=== PATIENT | female | born 1950 | race Caucasian/White ===

== ENCOUNTER 2018-12-17 16:45 | Emergency (ER) | payer MEDICARE, OTHER ==
[2018-12-17] MEDS ORDERED: Sodium Chloride 0.9% 10 ML Syringe FLUSH PRN (18:11)
[2018-12-17] MEDS ORDERED: Pantoprazole 40 MG Vial IVPUSH SCH (18:30)
--- NOTE | 2018-12-17 18:56 | EDM.PDOC ---
ED HPI GENERAL MEDICAL PROBLEM - General Chief Complaint: Gastrointestinal Problem Stated Complaint: BLOODY BOWELS Time Seen by Provider: 12/17/18 17:30 Source of Information: Reports: Patient, Family History Limitations: Reports: No Limitations - History of Present Illness INITIAL COMMENTS - FREE TEXT/NARRATIVE: Alert 68-year-old female presents with dark stools over the course of last 4 days. The patient has been doctoring at the meal for cardiac concerns. Patient is from [facility] and visiting [facility] on vacation. Patient's concerned she has had multiple dark stools over the course of the last 4 days. She did have some slight blood in her stool earlier today. Patient also has an increased heart rate. Patient has been doctoring quite a bit as of late she has had a colonoscopy which was negative she has known esophageal varices and was due for an endoscopy/EGD but procedure could not be completed due to tachycardia in the [facility]. Patient is otherwise in her normal state of health. She has some abdominal bloating along with swelling in her legs and hands which is new at this point in time. Patient is currently on her medications for esophageal varices, propranolol for her hypertension varices and Protonix. - Related Data Allergies Allergy/AdvReac Type Severity Reaction Status Date / Time erythromycin base Allergy Hives Verified 12/17/18 17:41 [Erythromycin Base] Penicillins Allergy Hives Verified 12/17/18 17:41 Home Meds: Home Meds Furosemide [Lasix] 04/01/14 [History] Potassium Chloride 04/01/14 [History] Propranolol [Inderal] 04/01/14 [History] Sertraline HCl [Zoloft] 04/01/14 [History] Zinc 04/01/14 [History] Apixaban [Eliquis] 12/17/18 [History] Neomycin [Neomycin Sulfate] 12/17/18 [History] Pantoprazole [ProTONIX] 12/17/18 [History] Past Medical History Cardiovascular History: Reports: Afib, Arrhythmia, Cardiomyopathy Gastrointestinal History: Reports: Chronic Diarrhea, GI Bleed Other Gastrointestinal History: esophageal varices - Past Surgical History Other GI Surgeries/Procedures: genetic hepatic fibrosis Social & Family History - Tobacco Use Smoking Status *Q: Never Smoker ED ROS GENERAL - Review of Systems Review Of Systems: ROS reveals no pertinent complaints other than HPI. Constitutional: Reports: Malaise GI/Abdominal: Reports: Abdominal Pain, Black Stool, Decreased Appetite, Melena : Reports: No Symptoms Musculoskeletal: Reports: No Symptoms Skin: Reports: No Symptoms Neurological: Reports: No Symptoms Psychiatric: Reports: No Symptoms Hematologic/Lymphatic: Reports: Easy Bleeding Immunologic: Reports: No Symptoms ED EXAM, GI/ABD - Physical Exam Exam: See Below Exam Limited By: No Limitations General Appearance: Alert, WD/WN Eyes: Bilateral: Normal Appearance, EOMI Ears: Normal External Exam, Hearing Grossly Normal Nose: Normal Inspection, Normal Mucosa, No Blood Throat/Mouth: Normal Inspection, Normal Lips, Normal Teeth, Normal Gums, Normal Oropharynx, Normal Voice Head: Normocephalic Neck: Normal Inspection, Supple, Non-Tender, Full Range of Motion Respiratory/Chest: No Respiratory Distress Cardiovascular: Normal Peripheral Pulses, Regular Rate, Rhythm, Other (murmur noted) GI/Abdominal Exam: Normal Bowel Sounds, Soft (slight epigastric discomfort), Non -Tender Extremities: Normal Inspection Neurological: Alert, Oriented, CN II-XII Intact, Normal Cognition, No Motor/ Sensory Deficits Psychiatric: Normal Affect, Normal Mood Skin Exam: Warm, Dry, Intact, Normal Color, No Rash EKG INTERPRETATION EKG Date: 12/17/18 Time: 18:30 Rhythm: NSR Rate (Beats/Min): 102 [place]: Normal P-Wave: Variable QRS: LBBB ST-T: Normal QT: Normal Comparison: NA - No Prior EKG Course - Vital Signs Last Recorded V/S: Last Vital Signs Temp 36.3 C 12/17/18 17:50 Pulse 104 H 12/17/18 19:17 Resp 15 12/17/18 19:17 BP 119/65 12/17/18 19:17 Pulse Ox 98 12/17/18 19:17 - Orders/Labs/Meds Orders: Active Orders 24 hr Category Date Time Status EKG Documentation Completion [RC] ASDIRECTED Care 12/17/18 18:12 Active Peripheral IV Care [RC] . DIRECTED Care 12/17/18 18:12 Active Pantoprazole [ProTONIX IV] Med 12/17/18 18:30 Active 80 mg IVPUSH .BOLUS Sodium Chloride 0.9% [Saline Flush] Med 12/17/18 18:11 Active 10 ml FLUSH ASDIRECTED PRN Peripheral IV Insertion Adult [OM.PC] Routine Oth 12/17/18 18:11 Ordered EKG 12 Lead [EK] Routine Ther 12/17/18 18:12 Ordered Medication Orders Pantoprazole Sodium (Protonix Iv) 80 mg IVPUSH .BOLUS DAYRON Last Admin: 12/17/18 19:19 Dose: 80 mg Sodium Chloride (Saline Flush) 10 ml FLUSH ASDIRECTED PRN PRN Reason: Keep Vein Open Last Admin: 12/17/18 19:19 Dose: 10 ml Labs: Laboratory Tests 12/17/18 12/17/18 12/17/18 Range/Units 18:10 18:10 18:10 WBC 6.1 (4.5-11.0) K/uL RBC 2.86 L (3.30-5.50) M/uL Hgb 10.2 L (12.0-15.0) g/dL Hct 30.3 L (36.0-48.0) % MCV 106 H (80-98) fL MCH 36 H (27-31) pg MCHC 34 (32-36) % Plt Count 83 L (150-400) K/uL Neut % (Auto) 47 (36-66) % Lymph % (Auto) 34 (24-44) % [place] % (Auto) 13 H (2-6) % Eos % (Auto) 5 H (2-4) % Baso % (Auto) 0 (0-1) % PT 12.0 (9.5-12.0) sec INR 1.10 (0.80-1.20) Sodium 141 (140-148) mmol/L Potassium 3.3 L (3.6-5.2) mmol/L Chloride 106 (100-108) mmol/L Carbon Dioxide 27 (21-32) mmol/L Anion Gap 11.3 (5.0-14.0) mmol/L BUN 25 H (7-18) mg/dL Creatinine 1.3 H (0.6-1.0) mg/dL Est Cr Clr Drug Dosing 32.76 mL/min Estimated GFR (MDRD) 41 L (>60) Glucose 145 H (74-106) mg/dL Calcium 9.0 (8.5-10.1) mg/dL Total Bilirubin 1.2 H (0.2-1.0) mg/dL AST 62 H (15-37) U/L ALT 38 (12-78) U/L Alkaline Phosphatase 168 H (46-116) U/L Total Protein 5.8 L (6.4-8.2) g/dL Albumin 2.7 L (3.4-5.0) g/dL Globulin 3.1 (2.3-3.5) g/dL Albumin/Globulin Ratio 0.9 L (1.2-2.2) Meds: Medications Generic Name Dose Route Start Last Admin Trade Name Freq PRN Reason Stop Dose Admin Pantoprazole Sodium 80 mg 12/17/18 18:30 12/17/18 19:19 Protonix Iv IVPUSH 80 mg .BOLUS DAYRON Administration Sodium Chloride 10 ml 12/17/18 18:11 12/17/18 19:19 Saline Flush FLUSH 10 ml ASDIRECTED PRN Administration Keep Vein Open Discontinued Medications Generic Name Dose Route Start Last Admin Trade Name Freq PRN Reason Stop Dose Admin Octreotide Acetate 100 mcg 12/17/18 19:25 12/17/18 20:04 Sandostatin IVPUSH 12/17/18 19:26 100 mcg ONETIME ONE Administration - Re-Assessments/Exams Free Text/Narrative Re-Assessment/Exam: 12/17/18 20:05 Reassessment completed. Patient has continued dark bloody stools. Hemoglobin is 10.2 previous hemoglobin 11.1 per patient. Unfortunately there is no ability to perform endoscopy and treatment for esophageal varices. Patient states she does have dark stools 2 or 3 times every week. Usually resolves in between. Patient' s appetite has been slightly decreased. Patient has had bloody stools and dark stools over the course of the last 4 days. IV dose of Protonix 40 mg given to help. IV dose of octreotide 100 g were given to help constrict the esophageal varices and decreased bleeding. Patient is encouraged to go to [place] or [facility] to see primary care provider and get emergent endoscopy. Patient and family are comfortable with the evaluation and understand the risks of staying in the area and not returning to [facility] for continued care. Patient is well aware of her esophageal varices and the risks of staying in the area without endoscopy or GI interventions. Departure - Departure Time of Disposition: 20:29 Disposition: Home, Self-Care 01 Clinical Impression: Chronic upper GI bleeding Esophageal varices Qualifiers: Esophageal varices type: unspecified type - Discharge Information Instructions: Esophageal Varices, Upper Gastrointestinal Bleeding Referrals: PCP,None [Primary Care Provider] - Forms: ED Department Discharge Additional Instructions: GERD 1. Take medications as direct to help reduce stomach acid and heal stomach irritation. 2. Consider holding Eloquis and ASA due to upper Stomach bleeding symptoms and dark stools. 3. [place] Diet and advance as tolerated. 4. Continue current medications. 5. Contact PCP in [place] or [facility] for recommendations. 6. Chronic recurrent Upper GI bleeding with Esophageal Varices Hgb 10.2, stable at this time. 7. You may need to return Home if symptoms are not improving in the next 1-2 days. 8. Return to ER if you are vomiting blood or increased blood stools for repeat testing. 9. Discussed transfer back to [facility] discuss during ER visit. - Problem List & Annotations (1) Dark stools SNOMED Code(s): 66523838 Code(s): R19.5 - OTHER FECAL ABNORMALITIES Status: Acute Current Visit: Yes Annotation/Comment:: weekly recurrance per patient and family (2) Esophageal varices SNOMED Code(s): 38754986 Code(s): I85.00 - ESOPHAGEAL VARICES WITHOUT BLEEDING Status: Acute Current Visit: Yes Annotation/Comment:: recurrent bleeding with known history Qualifiers: Esophageal varices type: unspecified type - My Orders Last 24 Hours: My Active Orders 12/17/18 18:11 Sodium Chloride 0.9% [Saline Flush] 10 ml FLUSH ASDIRECTED PRN Peripheral IV Insertion Adult [OM.PC] Routine 12/17/18 18:12 EKG Documentation Completion [RC] ASDIRECTED Peripheral IV Care [RC] . DIRECTED EKG 12 Lead [EK] Routine 12/17/18 18:30 Pantoprazole [ProTONIX IV] 80 mg IVPUSH .BOLUS - Assessment/Plan Last 24 Hours: My Active Orders 12/17/18 18:11 Sodium Chloride 0.9% [Saline Flush] 10 ml FLUSH ASDIRECTED PRN Peripheral IV Insertion Adult [OM.PC] Routine 12/17/18 18:12 EKG Documentation Completion [RC] ASDIRECTED Peripheral IV Care [RC] . DIRECTED EKG 12 Lead [EK] Routine 12/17/18 18:30 Pantoprazole [ProTONIX IV] 80 mg IVPUSH .BOLUS
[2018-12-17] MEDS ORDERED: Octreotide 100 MCG/ML SDV IVPUSH ONE (19:25)
== END 2018-12-17 20:52 | disposition home or self-care (01) ==
LOC: JP.ED 16:45
DX: K92.2 Gastrointestinal hemorrhage, unspecified (principal); I85.01 Esophageal varices with bleeding; I48.91 Unspecified atrial fibrillation; Z79.899 Other long term (current) drug therapy; Z88.1 Allergy status to other antibiotic agents; Z88.0 Allergy status to penicillin
CPT/HCPCS: 36415; 80053; 85025; 85610; 93005; 96374; 96375; 99285; C9113; J2354

== ENCOUNTER 2021-01-23 10:55 | Emergency (ER) | payer MEDICARE, OTHER ==
--- NOTE | 2021-01-23 14:47 | EDM.PDOC ---
ED HPI GENERAL MEDICAL PROBLEM - General Chief Complaint: Gastrointestinal Problem Stated Complaint: HEMORAGING Time Seen by Provider: 01/23/21 14:30 Source of Information: Reports: Patient, Family History Limitations: Reports: No Limitations - History of Present Illness INITIAL COMMENTS - FREE TEXT/NARRATIVE: This is a 70-year-old female with history of gastrointestinal hemorrhage, liver disease who presents with concerns of bright red blood in her stool. She reports extensive history of gastrointestinal hemorrhages, she is not sure what syndrome she has. Per review of the imaging she brings with her she does not appear to have gastric or esophageal varices. She does have known liver disease with evidence of some portal hypertension. She reports that since last night she had approximately 5 bright red bloody bowel movements. She has no associated new symptoms such as chest pain, shortness of breath, or dizziness, although she does have some of these at baseline. She is not on any blood thinners. Her last hemoglobin level was 8.3. Back Pain Score (Numeric/FACES): 5 - Related Data Allergies Allergy/AdvReac Type Severity Reaction Status Date / Time erythromycin base Allergy Hives Verified 01/23/21 11:42 [Erythromycin Base] Penicillins Allergy Hives Verified 01/23/21 11:42 Home Meds: Home Meds Furosemide [Lasix] 20 mg PO DAILY 04/01/14 [History] Potassium Chloride 10 mg PO DAILY 04/01/14 [History] Propranolol [Inderal] 20 mg PO DAILY 04/01/14 [History] Sertraline HCl [Zoloft] 100 mg PO DAILY 04/01/14 [History] Pantoprazole [ProTONIX] 40 mg PO BID 12/17/18 [History] Acetaminophen 1,000 mg PO ASDIRECTED 01/23/21 [History] Calcium Carbonate [Tums] 200 mg PO ASDIRECTED 01/23/21 [History] Cholecalciferol (Vitamin D3) [Vitamin D3] 2,000 unit PO BID 01/23/21 [History] Cyclobenzaprine [Flexeril] 5 mg PO TID PRN 01/23/21 [History] Ferrous Fumarate/Vitamin C [Vitron-C] 1 tab PO DAILY 01/23/21 [History] Fluticasone Propionate [Flonase Allergy Relief] 1 spray NASBOTH DAILY 01/23/21 [History] Gabapentin [Neurontin] 100 mg PO BEDTIME 01/23/21 [History] Glimepiride [Amaryl] 2 mg PO DAILY 01/23/21 [History] Lactulose 1 dose PO BID 01/23/21 [History] Magnesium Oxide 400 mg PO DAILY 01/23/21 [History] Meclizine [Antivert] 12.5 mg PO ASDIRECTED PRN 01/23/21 [History] Spironolactone [Aldactone] 25 mg PO DAILY PRN 01/23/21 [History] Vit A/Vit C/Vit E/Zinc/Copper [Preservision] 1 tab PO DAILY 01/23/21 [History] hydrOXYzine HCL [hydrOXYzine] 25 mg PO Q6H PRN 01/23/21 [History] Past Medical History HEENT History: Reports: Impaired Vision Cardiovascular History: Reports: Afib, Arrhythmia, Cardiomyopathy Gastrointestinal History: Reports: Chronic Diarrhea, GI Bleed Other Gastrointestinal History: esophageal varices MD UROLOGIST History: Reports: Neurological History: Reports: CVA - Past Surgical History Other GI Surgeries/Procedures: genetic hepatic fibrosis Musculoskeletal Surgical History: Reports: Knee Replacement Social & Family History - Tobacco Use Tobacco Use Status *Q: Never Tobacco User - Caffeine Use Caffeine Use: Reports: None - Recreational Drug Use Recreational Drug Use: No ED ROS GENERAL - Review of Systems Review Of Systems: See Below Constitutional: Reports: No Symptoms HEENT: Reports: No Symptoms Respiratory: Reports: No Symptoms Cardiovascular: Reports: No Symptoms Endocrine: Reports: No Symptoms GI/Abdominal: Reports: No Symptoms, Bloody Stool : Reports: No Symptoms Musculoskeletal: Reports: No Symptoms Skin: Reports: No Symptoms Neurological: Reports: No Symptoms Psychiatric: Reports: No Symptoms Hematologic/Lymphatic: Reports: No Symptoms Immunologic: Reports: No Symptoms ED EXAM, GI/ABD - Physical Exam Exam: See Below Exam Limited By: No Limitations General Appearance: Alert, No Apparent Distress Ears: Normal External Exam Nose: Normal Inspection Throat/Mouth: Normal Inspection Head: Atraumatic Neck: Normal Inspection Respiratory/Chest: No Respiratory Distress, Lungs Clear Cardiovascular: No Murmur, Tachycardia GI/Abdominal Exam: Soft, Non-Tender Back Exam: Normal Inspection Extremities: Normal Inspection Neurological: Alert, Oriented Psychiatric: Normal Affect, Normal Mood Skin Exam: Warm, Dry Course - Vital Signs Last Recorded V/S: Last Vital Signs Temp 36.6 C 01/23/21 11:42 Pulse 109 H 01/23/21 13:49 Resp 16 01/23/21 11:42 BP 143/81 H 01/23/21 13:49 Pulse Ox 100 01/23/21 13:49 - Orders/Labs/Meds Labs: Laboratory Tests 01/23/21 01/23/21 01/23/21 Range/Units 12:35 12:35 12:35 WBC 5.8 (4.5-11.0) K/uL RBC 2.55 L (3.30-5.50) M/uL Hgb 7.8 L D (12.0-15.0) g/dL Hct 25.1 L (36.0-48.0) % MCV 98 (80-98) fL MCH 31 (27-31) pg MCHC 31 L (32-36) % Plt Count 89 L (150-400) K/uL PT 11.6 (9.5-12.0) sec INR 1.07 (0.80-1.20) Sodium 145 (140-148) mmol/L Potassium 3.3 L (3.6-5.2) mmol/L Chloride 111 H (100-108) mmol/L Carbon Dioxide 26 (21-32) mmol/L Anion Gap 11.3 (5.0-14.0) mmol/L BUN 16 (7-18) mg/dL Creatinine 1.3 H (0.6-1.0) mg/dL Est Cr Clr Drug Dosing 30.38 mL/min Estimated GFR (MDRD) 40 L (>60) Glucose 192 H (74-106) mg/dL Calcium 8.2 L (8.5-10.1) mg/dL Total Bilirubin 1.2 H (0.2-1.0) mg/dL AST 53 H (15-37) U/L ALT 32 (12-78) U/L Alkaline Phosphatase 239 H (46-116) U/L Total Protein 5.1 L (6.4-8.2) g/dL Albumin 2.2 L (3.4-5.0) g/dL Globulin 2.9 (2.3-3.5) g/dL Albumin/Globulin Ratio 0.8 L (1.2-2.2) - Re-Assessments/Exams Free Text/Narrative Re-Assessment/Exam: This is a 70-year-old female history of liver disease, recurrent GI hemorrhage who presents with concerns of bright red blood in her stools. Most of her treatment is through the cost system. We are not quite sure of her underlying disease that causes her hemorrhage, reports that she has needed multiple endoscopies in the past. She is not anticoagulated. Imaging she has for review shows no evidence of gastric or esophageal varices. On exam she is notably mildly tachycardic. BP is preserved. Remainder physical exam is reassuring. Labs obtained are remarkable for hemoglobin of 7.8. Her most recent from approximately 2 weeks ago was 8.3. She does not seem to be having any new symptoms from her anemia. We had a long discussion about sending her to a tertiary facility given her complexity (although I am not sure what her underlying condition is without obtaining outside records), but she was very resistant to this. It seems that she is very much balancing quality of life with need for recurrent hospitalization. My recommendation was that given her active GI hemorrhage with tachycardia and low hemoglobin that we transfer her to a tertiary facility. Patient is declining this at this time in favor of staying locally to celebrate the holiday with her family. She declines blood transfusion. She understands the risks of this including fatal GI hemorrhage. She knows she can return to the ER at any time for reevaluation. She is discharged in the care of her family who are all in agreement with her plan. 01/23/21 15:59 Departure - Departure Time of Disposition: 14:25 Disposition: Home, Self-Care 01 Clinical Impression: GI bleed Qualifiers: GI bleed type/associated pathology: unspecified gastrointestinal hemorrhage type Qualified Code(s): K92.2 - Gastrointestinal hemorrhage, unspecified - Discharge Information *PRESCRIPTION DRUG MONITORING PROGRAM REVIEWED*: No *COPY OF PRESCRIPTION DRUG MONITORING REPORT IN PATIENT BETZY: No Instructions: Gastrointestinal Bleeding Referrals: PCP,None [Primary Care Provider] - Forms: ED Department Discharge Additional Instructions: As we discussed, we recommend hospitalization for your bleeding which you have declined. Please continue to closely follow your symptoms. We are always available if you desire further work up or treatment. Thank you for trusting us to care for you today. Sepsis Event Note (ED) - Evaluation Sepsis Screening Result: No Definite Risk - Focused Exam Vital Signs: Vital Signs Temp Pulse Resp BP Pulse Ox 01/23/21 13:49 109 H 143/81 H 100 01/23/21 11:42 36.6 C 107 H 16 151/89 H 99 01/23/21 11:39 36.6 C 107 H 16 151/89 H 99
== END 2021-01-23 15:09 | disposition home or self-care (01) ==
LOC: JP.ED 10:55
DX: K92.2 Gastrointestinal hemorrhage, unspecified (principal); Z88.0 Allergy status to penicillin; Z88.1 Allergy status to other antibiotic agents
CPT/HCPCS: 36415; 80053; 85027; 85610; 99283; 99284

== ENCOUNTER 2021-03-27 14:22 | Emergency (ER) | payer MEDICARE, OTHER ==
[2021-03-27] MEDS ORDERED: Sodium Chloride 0.9% 10 ML Syringe FLUSH PRN (14:54)
--- NOTE | 2021-03-27 15:04 | EDM.PDOC ---
ED HPI GENERAL MEDICAL PROBLEM - General Chief Complaint: General Stated Complaint: FROM CLINIC Time Seen by Provider: 03/27/21 15:00 Source of Information: Reports: Patient, Old Records, Provider History Limitations: Reports: Other (incomplete records) - History of Present Illness INITIAL COMMENTS - FREE TEXT/NARRATIVE: 71 yo female with a pHx of intermittent GI bleeding was referred to the ER today from [facility] for severe anemia with a Hgb of 4.6. Had reported to the clinic provider that there was GI blood loss 3 days ago(bright red blood per rectum). Gets a lot of her care at [facility]. Is not on any anticoagulants. Was here 01/23/21 with a hgb of 7.8. Has cirrhotic liver dz with portal HTN. Lives in [facility] and spends lauren only in this area so has had little of her healthcare around here. Last stool was granados/brown in color. 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) - Related Data Allergies Allergy/AdvReac Type Severity Reaction Status Date / Time erythromycin base Allergy Hives Verified 03/27/21 15:10 [Erythromycin Base] Penicillins Allergy Hives Verified 03/27/21 15:10 Home Meds: Home Meds Furosemide [Lasix] 20 mg PO DAILY 04/01/14 [History] Potassium Chloride 10 mg PO DAILY 04/01/14 [History] Propranolol [Inderal] 20 mg PO DAILY 04/01/14 [History] Sertraline HCl [Zoloft] 100 mg PO DAILY 04/01/14 [History] Pantoprazole [ProTONIX] 40 mg PO BID 12/17/18 [History] Acetaminophen 1,000 mg PO ASDIRECTED 01/23/21 [History] Calcium Carbonate [Tums] 200 mg PO ASDIRECTED 01/23/21 [History] Cyclobenzaprine [Flexeril] 5 mg PO TID PRN 01/23/21 [History] Fluticasone Propionate [Flonase Allergy Relief] 1 spray NASBOTH DAILY 01/23/21 [History] Gabapentin [Neurontin] 100 mg PO BEDTIME 01/23/21 [History] Glimepiride [Amaryl] 2 mg PO DAILY 01/23/21 [History] Lactulose 1 dose PO BID 01/23/21 [History] Magnesium Oxide 400 mg PO DAILY 01/23/21 [History] Meclizine [Antivert] 12.5 mg PO ASDIRECTED PRN 01/23/21 [History] Spironolactone [Aldactone] 25 mg PO DAILY PRN 01/23/21 [History] hydrOXYzine HCL [hydrOXYzine] 25 mg PO Q6H PRN 01/23/21 [History] Past Medical History HEENT History: Reports: Impaired Vision Cardiovascular History: Reports: Afib, Arrhythmia, Cardiomyopathy Gastrointestinal History: Reports: Chronic Diarrhea, GI Bleed Other Gastrointestinal History: esophageal varices 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 Denies: Chest Pain Endocrine: Reports: No Symptoms GI/Abdominal: Reports: Bloody Stool (3 days ago). Denies: Hematemesis, Nausea, Vomiting : Reports: No Symptoms Musculoskeletal: Reports: No Symptoms Skin: Reports: No Symptoms Neurological: Reports: No Symptoms ED EXAM, GENERAL - Physical Exam Exam: See Below Exam Limited By: No Limitations General Appearance: Alert, WD/WN, No Apparent Distress Eye Exam: Bilateral Eye: Normal Inspection, PERRL, Other (conjunctival pallor) Ears: Normal External Exam, Normal Canal, Hearing Grossly Normal Ear Exam: Bilateral Ear: Auricle Normal, Canal Normal, TM normal Nose: Normal Inspection, No Blood Throat/Mouth: Normal Inspection, Normal Lips, Normal Oropharynx, Normal Voice, No Airway Compromise Head: Atraumatic, Normocephalic Neck: Normal Inspection Respiratory/Chest: No Respiratory Distress, Lungs Clear, Normal Breath Sounds, No Accessory Muscle Use Cardiovascular: Regular Rate, Rhythm, No Edema, Tachycardia GI/Abdominal: Soft, Non-Tender, Abnormal Bowel Sounds (increased). No: Distended, Tender Extremities: Normal Inspection, Normal Range of Motion, Non-Tender, No Pedal Edema Neurological: Alert, Oriented, CN II-XII Intact, Normal Cognition, No Motor/Sensory Deficits Psychiatric: Normal Affect, Normal Mood Skin Exam: Warm, Dry, Intact, No Rash, Pallor Course - Vital Signs Text/Narrative:: Called [facility], no bed availability. Called [facility] no beds availability. Called [facility], may have a bed soon. Dr. Morrow Recorded V/S: Last Vital Signs Temp 36.6 C 03/27/21 15:09 Pulse 114 H 03/27/21 16:04 Resp 10 L 03/27/21 16:04 BP 110/61 03/27/21 16:04 Pulse Ox 100 03/27/21 16:23 - Orders/Labs/Meds Orders: Active Orders 24 hr Category Date Time Status Oxygen Therapy Adult [Oxygen Therapy, ED] [RC] Care 03/27/21 14:56 Active ASDIRECTED CORONAVIRUS COVID-19 RAPID [MOLEC] Stat Lab 03/27/21 16:23 Ordered Hemoccult [OCCULT BLOOD DIAGNOSTIC] [OP] Stat Lab 03/27/21 14:59 Ordered PATIENT RETYPE [BBK] Stat Lab 03/27/21 15:10 Results RED BLOOD CELLS LP [BBK] Stat Lab 03/27/21 15:10 Results TYPE AND SCREEN [BBK] Stat Lab 03/27/21 15:10 Results Lactated Ringers [Ringers, Lactated] 1,000 ml Med 03/27/21 15:45 Active IV ASDIRECTED Lactated Ringers [Ringers, Lactated] 1,000 ml Med 03/27/21 16:15 Active IV ASDIRECTED Octreotide [SandoSTATIN] 500 mcg Med 03/27/21 16:15 Active Sodium Chloride 0.9% [Normal Saline] 497.5 ml IV Q10H Pantoprazole [ProTONIX IV] 80 mg Med 03/27/21 16:15 Active Sodium Chloride 0.9% [Normal Saline] 100 ml IV .BOLUS Sodium Chloride 0.9% [Saline Flush] Med 03/27/21 14:54 Active 10 ml FLUSH ASDIRECTED PRN Saline Lock Insert [OM.PC] Routine Oth 03/27/21 14:54 Ordered Transfuse Red Blood Cells [COMM] Urgent Oth 03/27/21 15:49 Ordered Medication Orders Lactated Ringer's (Ringers, Lactated) 1,000 mls @ 100 mls/hr IV ASDIRECTED DAYRON Last Admin: 03/27/21 15:45 Dose: 100 mls/hr Documented by: RL Lactated Ringer's (Ringers, Lactated) 1,000 mls @ 50 mls/hr IV ASDIRECTED DAYRON Pantoprazole Sodium 80 mg/ (Sodium Chloride) 100 mls @ 200 mls/hr IV .BOLUS DAYRON Octreotide Acetate 500 mcg/ (Sodium Chloride) 500 mls @ 50 mls/hr IV Q10H DAYRON Sodium Chloride (Sodium Chloride 0.9% 10 Ml Syringe) 10 ml FLUSH ASDIRECTED PRN PRN Reason: Keep Vein Open Last Admin: 03/27/21 15:18 Dose: 10 ml Documented by: RL Labs: Laboratory Tests 03/27/21 03/27/21 Range/Units 15:10 16:18 PT 11.7 (9.5-12.0) sec INR 1.07 (0.80-1.20) Blood Type O POSITIVE Gel Antibody Screen Negative Crossmatch See Detail Meds: Medications Generic Name Dose Route Start Last Admin Trade Name Freq PRN Reason Stop Dose Admin Lactated Ringer's 1,000 mls @ 100 mls/hr 03/27/21 15:45 03/27/21 15:45 Ringers, Lactated IV 100 mls/hr ASDIRECTED DAYRON Administration Lactated Ringer's 1,000 mls @ 50 mls/hr 03/27/21 16:15 Ringers, Lactated IV ASDIRECTED DAYRON Pantoprazole Sodium 80 mg/ 100 mls @ 200 mls/hr 03/27/21 16:15 Sodium Chloride IV .BOLUS DAYRON Octreotide Acetate 500 mcg/ 500 mls @ 50 mls/hr 03/27/21 16:15 Sodium Chloride IV Q10H DAYRON 50 MCG/HR Sodium Chloride 10 ml 03/27/21 14:54 03/27/21 15:18 Sodium Chloride 0.9% 10 Ml Syringe FLUSH 10 ml ASDIRECTED PRN Administration Keep Vein Open Departure - Departure Time of Disposition: 17:00 Disposition: DC/Tfer to Acute Hospital 02 Condition: Serious Clinical Impression: Severe anemia, Lower GI hemorrhage - Discharge Information *PRESCRIPTION DRUG MONITORING PROGRAM REVIEWED*: Not Applicable *COPY OF PRESCRIPTION DRUG MONITORING REPORT IN PATIENT BETZY: Not Applicable Referrals: PCP,None [Primary Care Provider] - Forms: ED Department Discharge Sepsis Event Note (ED) - Focused Exam Vital Signs: Vital Signs Temp Pulse Resp BP Pulse Ox Pulse Ox 03/27/21 16:23 100 03/27/21 16:04 114 H 10 L 110/61 99 03/27/21 15:09 36.6 C 115 H 15 109/65 99 03/27/21 15:01 36.6 C 115 H 15 109/65 99 - My Orders Last 24 Hours: My Active Orders 03/27/21 14:54 Sodium Chloride 0.9% [Saline Flush] 10 ml FLUSH ASDIRECTED PRN Saline Lock Insert [OM.PC] Routine 03/27/21 14:56 Oxygen Therapy Adult [Oxygen Therapy, ED] [RC] ASDIRECTED 03/27/21 14:59 Hemoccult [OCCULT BLOOD DIAGNOSTIC] [OP] Stat 03/27/21 15:10 PATIENT RETYPE [BBK] Stat RED BLOOD CELLS LP [BBK] Stat TYPE AND SCREEN [BBK] Stat 03/27/21 15:45 Lactated Ringers [Ringers, Lactated] 1,000 ml IV ASDIRECTED 03/27/21 15:49 Transfuse Red Blood Cells [COMM] Urgent 03/27/21 16:15 Lactated Ringers [Ringers, Lactated] 1,000 ml IV ASDIRECTED Octreotide [SandoSTATIN] 500 mcg Sodium Chloride 0.9% [Normal Saline] 497.5 ml IV Q10H Pantoprazole [ProTONIX IV] 80 mg Sodium Chloride 0.9% [Normal Saline] 100 ml IV .BOLUS 03/27/21 16:23 CORONAVIRUS COVID-19 RAPID [MOLEC] Stat - Assessment/Plan Last 24 Hours: My Active Orders 03/27/21 14:54 Sodium Chloride 0.9% [Saline Flush] 10 ml FLUSH ASDIRECTED PRN Saline Lock Insert [OM.PC] Routine 03/27/21 14:56 Oxygen Therapy Adult [Oxygen Therapy, ED] [RC] ASDIRECTED 03/27/21 14:59 Hemoccult [OCCULT BLOOD DIAGNOSTIC] [OP] Stat 03/27/21 15:10 PATIENT RETYPE [BBK] Stat RED BLOOD CELLS LP [BBK] Stat TYPE AND SCREEN [BBK] Stat 03/27/21 15:45 Lactated Ringers [Ringers, Lactated] 1,000 ml IV ASDIRECTED 03/27/21 15:49 Transfuse Red Blood Cells [COMM] Urgent 03/27/21 16:15 Lactated Ringers [Ringers, Lactated] 1,000 ml IV ASDIRECTED Octreotide [SandoSTATIN] 500 mcg Sodium Chloride 0.9% [Normal Saline] 497.5 ml IV Q10H Pantoprazole [ProTONIX IV] 80 mg Sodium Chloride 0.9% [Normal Saline] 100 ml IV .BOLUS 03/27/21 16:23 CORONAVIRUS COVID-19 RAPID [MOLEC] Stat
[2021-03-27] MEDS ORDERED: Lactated Ringers 1,000 ML IV SCH ×2 (15:45→16:15)
[2021-03-27] MEDS ORDERED: Pantoprazole 80 MG in Sodium Chloride 0.9% 100 ML IV SCH (16:15)
[2021-03-27] MEDS ORDERED: Octreotide 500 MCG in Sodium Chloride 0.9% 497.5 ML IV SCH (16:15)
== END 2021-03-27 18:57 ==
LOC: JP.ED 14:22
DX: K92.2 Gastrointestinal hemorrhage, unspecified (principal); D64.9 Anemia, unspecified; Z86.73 Personal history of transient ischemic attack (TIA), and cerebral infarction without residual deficits; Z88.0 Allergy status to penicillin; Z88.1 Allergy status to other antibiotic agents
CPT/HCPCS: 36415; 36430; 85610; 86850; 86900; 86901; 86920; 86922; 96365; 96366; 96367; 99285; C9113; J2354; J7040; J7120; P9016; U0002

== ENCOUNTER 2021-05-02 12:24 | Emergency (ER) | payer MEDICARE, OTHER ==
--- NOTE | 2021-05-02 15:06 | EDM.PDOC ---
ED HPI GENERAL MEDICAL PROBLEM - General Chief Complaint: General Stated Complaint: NOT ACTING LIKE HERSELF LIVER ISSURES Time Seen by Provider: 05/02/21 14:30 Source of Information: Reports: Patient History Limitations: Reports: No Limitations - History of Present Illness INITIAL COMMENTS - FREE TEXT/NARRATIVE: This is a 71-year-old female with history of fibrotic liver disease who presents with concerns of confusion. She is primarily provided by her . The patient recently moved to this area from [facility]. She has a history of hepatic encephalopathy. She recently had her lactulose dose decreased. notes increasing confusion over the last several days. He attributes this to her hepatic encephalopathy. Patient does report occasional falls. No fevers or chills. She denies any urinary symptoms. - Related Data Allergies Allergy/AdvReac Type Severity Reaction Status Date / Time erythromycin base Allergy Intermediate Hives Verified 05/02/21 14:02 [Erythromycin Base] Penicillins Allergy Mild Hives Verified 05/02/21 14:02 Home Meds: Home Meds Furosemide [Lasix] 20 mg PO DAILY PRN 04/01/14 [History] Potassium Chloride 10 mg PO DAILY 04/01/14 [History] Propranolol [Inderal] 20 mg PO BID 04/01/14 [History] Sertraline HCl [Zoloft] 100 mg PO DAILY 04/01/14 [History] Pantoprazole [ProTONIX] 40 mg PO BID 12/17/18 [History] Acetaminophen 1,000 mg PO TID PRN 01/23/21 [History] Calcium Carbonate [Tums] 500 mg PO TID PRN 01/23/21 [History] Cyclobenzaprine [Flexeril] 5 mg PO TID PRN 01/23/21 [History] Fluticasone Propionate [Flonase Allergy Relief] 1 spray NASBOTH DAILY PRN 01/23/21 [History] Gabapentin [Neurontin] 100 mg PO BEDTIME 01/23/21 [History] Glimepiride [Amaryl] 2 mg PO DAILY 01/23/21 [History] Lactulose 1 dose PO BID 01/23/21 [History] Magnesium Oxide 400 mg PO DAILY 01/23/21 [History] Meclizine [Antivert] 12.5 mg PO ASDIRECTED PRN 01/23/21 [History] Spironolactone [Aldactone] 25 mg PO DAILY PRN 01/23/21 [History] hydrOXYzine HCL [hydrOXYzine] 25 mg PO Q6H PRN 01/23/21 [History] Cefdinir [Omnicef] 300 mg PO DAILY #10 cap 05/02/21 [Rx] Past Medical History HEENT History: Reports: Impaired Vision Cardiovascular History: Reports: Afib, Arrhythmia, Cardiomyopathy Gastrointestinal History: Reports: Chronic Diarrhea, GI Bleed Other Gastrointestinal History: esophageal varices 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: Neurological History: Reports: CVA Psychiatric History: Reports: Depression - Past Surgical History Other GI Surgeries/Procedures: genetic hepatic fibrosis Musculoskeletal Surgical History: Reports: Knee Replacement Social & Family History - Tobacco Use Tobacco Use Status *Q: Never Tobacco User - Caffeine Use Caffeine Use: Reports: Tea - Recreational Drug Use Recreational Drug Use: No ED ROS GENERAL - Review of Systems Review Of Systems: See Below Constitutional: Reports: No Symptoms HEENT: Reports: No Symptoms Respiratory: Reports: No Symptoms Cardiovascular: Reports: No Symptoms Endocrine: Reports: No Symptoms GI/Abdominal: Reports: No Symptoms : Reports: No Symptoms Musculoskeletal: Reports: No Symptoms Skin: Reports: No Symptoms Neurological: Reports: Confusion Psychiatric: Reports: No Symptoms Hematologic/Lymphatic: Reports: No Symptoms Immunologic: Reports: No Symptoms ED EXAM, GENERAL - Physical Exam Exam: See Below Exam Limited By: No Limitations General Appearance: Alert, No Apparent Distress Ears: Normal External Exam Nose: Normal Inspection Throat/Mouth: Normal Inspection Head: Atraumatic, Normocephalic Neck: Normal Inspection Respiratory/Chest: Lungs Clear Cardiovascular: Regular Rate, Rhythm, No Murmur GI/Abdominal: Soft, Tender (suprapubic tenderness) Back Exam: Normal Inspection Extremities: Normal Inspection Neurological: Alert, CN II-XII Intact, Confused, Disoriented, Other (Oriented to person, place, not oriented to year. No pronator drift. Asteristix noted. No lower extremity drift. Motor strength in extremities power 5 and symmetric.) Psychiatric: Normal Affect, Normal Mood Skin Exam: Warm, Dry Course - Vital Signs Last Recorded V/S: Last Vital Signs Temp 36.1 C 05/02/21 14:19 Pulse 109 H 05/02/21 16:34 Resp 16 05/02/21 14:19 BP 105/70 05/02/21 16:34 Pulse Ox 98 05/02/21 16:34 - Orders/Labs/Meds Orders: Active Orders 24 hr Category Date Time Status CULTURE URINE [RM] Stat Lab 05/02/21 17:10 Received Labs: Laboratory Tests 05/02/21 05/02/21 05/02/21 Range/Units 14:41 14:41 14:41 WBC 8.5 (4.5-11.0) K/uL RBC 3.24 L (3.30-5.50) M/uL Hgb 9.0 L (12.0-15.0) g/dL Hct 29.0 L (36.0-48.0) % MCV 90 (80-98) fL MCH 28 (27-31) pg MCHC 31 L (32-36) % Plt Count 100 L (150-400) K/uL Sodium 139 L (140-148) mmol/L Potassium 4.0 (3.6-5.2) mmol/L Chloride 108 (100-108) mmol/L Carbon Dioxide 23 (21-32) mmol/L Anion Gap 12.0 (5.0-14.0) mmol/L BUN 26 H D (7-18) mg/dL Creatinine 2.0 H D (0.6-1.0) mg/dL Est Cr Clr Drug Dosing 21.34 mL/min Estimated GFR (MDRD) 25 L (>60) Glucose 331 H (74-106) mg/dL Calcium 8.2 L (8.5-10.1) mg/dL Total Bilirubin 1.2 H (0.2-1.0) mg/dL AST 40 H (15-37) U/L ALT 31 (12-78) U/L Alkaline Phosphatase 179 H (46-116) U/L Ammonia < 10 L (11-32) umol/L Total Protein 5.3 L (6.4-8.2) g/dL Albumin 2.1 L (3.4-5.0) g/dL Globulin 3.2 (2.3-3.5) g/dL Albumin/Globulin Ratio 0.7 L (1.2-2.2) Urine Color (YELLOW) Urine Appearance (CLEAR) Urine pH (5.0-8.0) Ur Specific [place] (1.008-1.030) Urine Protein (NEGATIVE) mg/dL Urine Glucose (UA) (NEGATIVE) mg/dL Urine Ketones (NEGATIVE) mg/dL Urine Occult Blood (NEGATIVE) Urine Nitrite (NEGATIVE) Urine Bilirubin (NEGATIVE) Urine Urobilinogen (0.2-1.0) EU/dL Ur Leukocyte Esterase (NEGATIVE) Urine RBC (0-5) Urine WBC (0-5) Ur Epithelial Cells Amorphous Sediment Urine Bacteria Urine Mucus 05/02/21 Range/Units 15:45 WBC (4.5-11.0) K/uL RBC (3.30-5.50) M/uL Hgb (12.0-15.0) g/dL Hct (36.0-48.0) % MCV (80-98) fL MCH (27-31) pg MCHC (32-36) % Plt Count (150-400) K/uL Sodium (140-148) mmol/L Potassium (3.6-5.2) mmol/L Chloride (100-108) mmol/L Carbon Dioxide (21-32) mmol/L Anion Gap (5.0-14.0) mmol/L BUN (7-18) mg/dL Creatinine (0.6-1.0) mg/dL Est Cr Clr Drug Dosing mL/min Estimated GFR (MDRD) (>60) Glucose (74-106) mg/dL Calcium (8.5-10.1) mg/dL Total Bilirubin (0.2-1.0) mg/dL AST (15-37) U/L ALT (12-78) U/L Alkaline Phosphatase (46-116) U/L Ammonia (11-32) umol/L Total Protein (6.4-8.2) g/dL Albumin (3.4-5.0) g/dL Globulin (2.3-3.5) g/dL Albumin/Globulin Ratio (1.2-2.2) Urine Color Yellow (YELLOW) Urine Appearance Slightly cloudy A (CLEAR) Urine pH 7.0 (5.0-8.0) Ur Specific [place] 1.020 (1.008-1.030) Urine Protein 30 H (NEGATIVE) mg/dL Urine Glucose (UA) 250 H (NEGATIVE) mg/dL Urine Ketones Negative (NEGATIVE) mg/dL Urine Occult Blood Large H (NEGATIVE) Urine Nitrite Negative (NEGATIVE) Urine Bilirubin Negative (NEGATIVE) Urine Urobilinogen 0.2 (0.2-1.0) EU/dL Ur Leukocyte Esterase Small H (NEGATIVE) Urine RBC 40-50 H (0-5) Urine WBC 10-20 H (0-5) Ur Epithelial Cells Few Amorphous Sediment Not seen Urine Bacteria Many Urine Mucus Not seen Meds: Medications Discontinued Medications Generic Name Dose Route Start Last Admin Trade Name Sonq PRN Reason Stop Dose Admin Cefdinir 300 mg 05/02/21 17:15 05/02/21 17:39 Cefdinir 300 Mg Cap PO 05/02/21 17:16 300 mg ONETIME ONE Administration - Re-Assessments/Exams Free Text/Narrative Re-Assessment/Exam: 71-year-old female with history of fibrosing liver disease, managed on lactulose, presents concerns of confusion. On exam she is noted to have normal vitals. Some suprapubic tenderness. Otherwise is noted to be confused, not oriented to year. Initial suspicion was for probable hepatic encephalopathy, however her ammonia was noted to be normal. The remainder of her screening blood work does show significantly impaired renal function, we do not have a baseline. CT of the head was obtained given her falls, no acute process. UA was obtained and shows some mild leuk esterase as well as RBCs. She does have suprapubic tenderness on exam. I think given the lack of other explanation for symptoms and these findings it is reasonable to treat her for UTI with prompt PCP follow-up to see if she has any clearing of her mentation. She was prescribed cefdinir for this. They are new to our area. I have placed a referral to the primary care clinic for them to be promptly seen for recheck, she would need to have elevated creatinine rechecked as well at this time. Discharge with return precautions. 05/02/21 17:49 Departure - Departure Time of Disposition: 17:15 Disposition: Home, Self-Care 01 Clinical Impression: Confusion UTI (urinary tract infection) Qualifiers: Urinary tract infection type: acute cystitis Hematuria presence: with hematuria Qualified Code(s): N30.01 - Acute cystitis with hematuria - Discharge Information *PRESCRIPTION DRUG MONITORING PROGRAM REVIEWED*: No *COPY OF PRESCRIPTION DRUG MONITORING REPORT IN PATIENT BETZY: No Prescriptions: Cefdinir [Omnicef] 300 mg PO DAILY #10 cap Instructions: Confusion, Urinary Tract Infection, Adult Referrals: PCP,None [Primary Care Provider] - Forms: ED Department Discharge Additional Instructions: As discussed, we are going to treat Toyin for a possible urinary tract infection that may be contributing to her symptoms. We also want you to have prompt follow-up in a primary care clinic, referrals were placed for this. If you feel that her symptoms significantly worsen, please bring her back to the emergency room so we can reevaluate her. Thank you for trusting us to care for you today. Sepsis Event Note (ED) - Evaluation Sepsis Screening Result: No Definite Risk - Focused Exam Vital Signs: Vital Signs Temp Pulse Resp BP Pulse Ox 05/02/21 16:34 109 H 105/70 98 05/02/21 15:45 108 H 116/69 98 05/02/21 14:19 36.1 C 111 H 16 132/79 98 05/02/21 13:57 36.1 C 111 H 16 132/79 98 - My Orders Last 24 Hours: My Active Orders 05/02/21 17:10 CULTURE URINE [RM] Stat - Assessment/Plan Last 24 Hours: My Active Orders 05/02/21 17:10 CULTURE URINE [RM] Stat
--- NOTE | 2021-05-02 15:42 | CRLCT ---
For Patients: As a result of the Century Cures Act, medical imaging exams and procedure reports are released immediately into your electronic medical record. You may view this report before your referring provider. If you have questions, please contact your health care provider. INDICATION: Confusion TECHNIQUE: CT head without contrast. COMPARISON: None FINDINGS: CSF spaces: Within normal limits for age. Brain parenchyma: The reyna-white differentiation is normal. No sign of mass, hemorrhage, or midline shift. Diffuse volume loss. Ventricular white matter changes consistent chronic microvascular disease. Skull base and calvarium: Left maxillary sinus mucosal thickening. Left scleral band. No skull fractures. IMPRESSION: No acute intracranial abnormalities Dictated by Torin Irby MD @ 05/02/2021 3:40:43 PM Please note that all CT scans at this facility use dose modulation, iterative reconstruction, and/or weight-based dosing when appropriate to reduce radiation dose to as low as reasonably achievable. Dictated by: Torin Irby MD @ 05/02/2021 15:40:51 (Electronically Signed)
[2021-05-02] MEDS ORDERED: Cefdinir 300 MG Cap PO ONE (17:15)
== END 2021-05-02 17:53 | disposition home or self-care (01) ==
LOC: JP.ED 12:24
DX: N30.01 Acute cystitis with hematuria (principal); R41.0 Disorientation, unspecified; I48.91 Unspecified atrial fibrillation; Z79.899 Other long term (current) drug therapy; Z88.1 Allergy status to other antibiotic agents; Z88.0 Allergy status to penicillin
CPT/HCPCS: 36415; 70450; 80053; 81001; 82140; 85027; 87086; 87088; 87186; 99285; A9270

== ENCOUNTER 2021-05-21 10:52 | Emergency (ER) | payer MEDICARE, OTHER ==
[2021-05-21] MEDS ORDERED: Sodium Chloride 0.9% 1,000 ML IV SCH (11:45)
--- NOTE | 2021-05-21 11:55 | EDM.PDOC ---
ED HPI GENERAL MEDICAL PROBLEM - General Chief Complaint: Genitourinary Problem Stated Complaint: KIDNEY ISSUE Time Seen by Provider: 05/21/21 11:40 Source of Information: Reports: Patient, Family History Limitations: Reports: No Limitations - History of Present Illness INITIAL COMMENTS - FREE TEXT/NARRATIVE: 71-year-old female with chronic liver failure and renal failure secondary to chronic polycystic disease. She is very weak and having some increased flank pain over the past several days so her regular providers from [facility] recommended she come in and get a UA checked as well as some labs and a half a liter of bolus fluid. She does not have nausea or vomiting but is having some episodes of diarrhea which are chronic due to lactulose therapy. She has an appointment down at [facility] in 3 days but is not going because she feels too weak to make the trip. No fevers or chills, denies shortness of breath or cough. Onset: Gradual Duration: Day(s): (Symptoms worsening over the past several days) Location: Reports: Abdomen, Back (Mostly on the right side, complaining of right abdominal and right flank pain) Associated Symptoms: Reports: Malaise, Weakness, Other (Mild confusion, weakness). Denies: Fever/Chills Bilateral Flank Pain Score (Numeric/FACES): 7 - Related Data Allergies Allergy/AdvReac Type Severity Reaction Status Date / Time erythromycin base Allergy Intermediate Hives Verified 05/21/21 11:13 [Erythromycin Base] Home Meds: Home Meds Furosemide [Lasix] 20 mg PO DAILY PRN 04/01/14 [History] Potassium Chloride 10 mg PO DAILY 04/01/14 [History] Propranolol [Inderal] 20 mg PO BID 04/01/14 [History] Sertraline HCl [Zoloft] 100 mg PO DAILY 04/01/14 [History] Pantoprazole [ProTONIX] 40 mg PO BID 12/17/18 [History] Acetaminophen 1,000 mg PO TID PRN 01/23/21 [History] Calcium Carbonate [Tums] 500 mg PO TID PRN 01/23/21 [History] Cyclobenzaprine [Flexeril] 5 mg PO TID PRN 01/23/21 [History] Fluticasone Propionate [Flonase Allergy Relief] 1 spray NASBOTH DAILY PRN 01/23/21 [History] Gabapentin [Neurontin] 100 mg PO BEDTIME 01/23/21 [History] Glimepiride [Amaryl] 2 mg PO DAILY 01/23/21 [History] Lactulose 1 dose PO BID 01/23/21 [History] Magnesium Oxide 400 mg PO DAILY 01/23/21 [History] Meclizine [Antivert] 12.5 mg PO ASDIRECTED PRN 01/23/21 [History] Spironolactone [Aldactone] 25 mg PO DAILY PRN 01/23/21 [History] hydrOXYzine HCL [hydrOXYzine] 25 mg PO Q6H PRN 01/23/21 [History] Past Medical History HEENT History: Reports: Impaired Vision Cardiovascular History: Reports: Afib, Arrhythmia, Cardiomyopathy, Hypertension Respiratory History: Reports: None Gastrointestinal History: Reports: Chronic Diarrhea, Cirrhosis, Gastritis, GI Bleed Other Gastrointestinal History: esophageal varices Genitourinary History: Reports: Chronic Renal Insuffiency, Renal Calculus, UTI, Recurrent Other Genitourinary History: "sponge"disease [employer] History: Reports: Musculoskeletal History: Reports: None Neurological History: Reports: CVA Psychiatric History: Reports: Depression Endocrine/Metabolic History: Reports: None Hematologic History: Reports: Anemia, Blood Transfusion(s) Oncologic (Cancer) History: Reports: None Dermatologic History: Reports: None - Infectious Disease History Infectious Disease History: Reports: Chicken Pox, Measles, Mumps - Past Surgical History GI Surgical History: Reports: Colonoscopy, EGD Other GI Surgeries/Procedures: genetic hepatic fibrosis Female Surgical History: Reports: None Musculoskeletal Surgical History: Reports: Knee Replacement Social & Family History - Tobacco Use Tobacco Use Status *Q: Never Tobacco User - Caffeine Use Caffeine Use: Reports: Tea ED ROS GENERAL - Review of Systems Review Of Systems: See Below Constitutional: Reports: Malaise, Decreased Appetite. Denies: Fever, Chills HEENT: Denies: Throat Pain Respiratory: Denies: Shortness of Breath Cardiovascular: Denies: Chest Pain, Palpitations GI/Abdominal: Reports: Abdominal Pain, Diarrhea. Denies: Hematemesis, Hematochezia Neurological: Reports: Dizziness, Weakness. Denies: Headache Psychiatric: Reports: No Symptoms ED EXAM, GENERAL - Physical Exam Exam: See Below Exam Limited By: No Limitations General Appearance: Alert, No Apparent Distress Eye Exam: Bilateral Eye: Normal Inspection Respiratory/Chest: No Respiratory Distress, Lungs Clear Cardiovascular: Regular Rate, Rhythm, Tachycardia (Mild tachycardia) GI/Abdominal: Soft, Tender (Reacts with tenderness to palpation especially in the right upper quadrant, some firmness in the area indicating likely hepatomegaly) Extremities: Other (Just a trace of lower extremity edema, slightly worse on the right leg than the left) Neurological: Alert, Oriented Psychiatric: Flat Affect Course - Vital Signs Last Recorded V/S: Last Vital Signs Temp 97.5 F 05/21/21 11:23 Pulse 110 H 05/21/21 12:28 Resp 16 05/21/21 11:23 BP 115/79 05/21/21 12:28 Pulse Ox 97 05/21/21 11:23 - Orders/Labs/Meds Labs: Laboratory Tests 05/21/21 05/21/21 05/21/21 Range/Units 11:05 11:59 11:59 WBC 7.9 (4.5-11.0) K/uL RBC 3.26 L (3.30-5.50) M/uL Hgb 9.2 L (12.0-15.0) g/dL Hct 29.3 L (36.0-48.0) % MCV 90 (80-98) fL MCH 28 (27-31) pg MCHC 31 L (32-36) % Plt Count 101 L (150-400) K/uL Neut % (Auto) 66.5 H (36-66) % Lymph % (Auto) 23.3 L (24-44) % [place] % (Auto) 7.5 H (2-6) % Eos % (Auto) 2.4 (2-4) % Baso % (Auto) 0.3 (0-1) % Sodium 137 L (140-148) mmol/L Potassium 3.6 (3.6-5.2) mmol/L Chloride 102 (100-108) mmol/L Carbon Dioxide 23 (21-32) mmol/L Anion Gap 15.6 H (5.0-14.0) mmol/L BUN 26 H (7-18) mg/dL Creatinine 2.5 H (0.6-1.0) mg/dL Est Cr Clr Drug Dosing 15.57 mL/min Estimated GFR (MDRD) 19 L (>60) Glucose 293 H (74-106) mg/dL Calcium 8.2 L (8.5-10.1) mg/dL Total Bilirubin 1.3 H (0.2-1.0) mg/dL AST 66 H (15-37) U/L ALT 44 (12-78) U/L Alkaline Phosphatase 290 H (46-116) U/L Ammonia (11-32) umol/L Total Protein 5.8 L (6.4-8.2) g/dL Albumin 2.5 L (3.4-5.0) g/dL Globulin 3.3 (2.3-3.5) g/dL Albumin/Globulin Ratio 0.8 L (1.2-2.2) Urine Color Yellow (YELLOW) Urine Appearance Slightly cloudy A (CLEAR) Urine pH 6.0 (5.0-8.0) Ur Specific [place] 1.020 (1.008-1.030) Urine Protein Negative (NEGATIVE) mg/dL Urine Glucose (UA) 100 H (NEGATIVE) mg/dL Urine Ketones Negative (NEGATIVE) mg/dL Urine Occult Blood Negative (NEGATIVE) Urine Nitrite Negative (NEGATIVE) Urine Bilirubin Negative (NEGATIVE) Urine Urobilinogen 0.2 (0.2-1.0) EU/dL Ur Leukocyte Esterase Small H (NEGATIVE) Urine RBC 0-5 (0-5) Urine WBC 20-30 H (0-5) Ur Epithelial Cells Few Amorphous Sediment Not seen Urine Bacteria Not seen Urine Mucus Not seen 05/21/21 Range/Units 11:59 WBC (4.5-11.0) K/uL RBC (3.30-5.50) M/uL Hgb (12.0-15.0) g/dL Hct (36.0-48.0) % MCV (80-98) fL MCH (27-31) pg MCHC (32-36) % Plt Count (150-400) K/uL Neut % (Auto) (36-66) % Lymph % (Auto) (24-44) % [place] % (Auto) (2-6) % Eos % (Auto) (2-4) % Baso % (Auto) (0-1) % Sodium (140-148) mmol/L Potassium (3.6-5.2) mmol/L Chloride (100-108) mmol/L Carbon Dioxide (21-32) mmol/L Anion Gap (5.0-14.0) mmol/L BUN (7-18) mg/dL Creatinine (0.6-1.0) mg/dL Est Cr Clr Drug Dosing mL/min Estimated GFR (MDRD) (>60) Glucose (74-106) mg/dL Calcium (8.5-10.1) mg/dL Total Bilirubin (0.2-1.0) mg/dL AST (15-37) U/L ALT (12-78) U/L Alkaline Phosphatase (46-116) U/L Ammonia 15 (11-32) umol/L Total Protein (6.4-8.2) g/dL Albumin (3.4-5.0) g/dL Globulin (2.3-3.5) g/dL Albumin/Globulin Ratio (1.2-2.2) Urine Color (YELLOW) Urine Appearance (CLEAR) Urine pH (5.0-8.0) Ur Specific [place] (1.008-1.030) Urine Protein (NEGATIVE) mg/dL Urine Glucose (UA) (NEGATIVE) mg/dL Urine Ketones (NEGATIVE) mg/dL Urine Occult Blood (NEGATIVE) Urine Nitrite (NEGATIVE) Urine Bilirubin (NEGATIVE) Urine Urobilinogen (0.2-1.0) EU/dL Ur Leukocyte Esterase (NEGATIVE) Urine RBC (0-5) Urine WBC (0-5) Ur Epithelial Cells Amorphous Sediment Urine Bacteria Urine Mucus Meds: Medications Discontinued Medications Generic Name Dose Route Start Last Admin Trade Name Freq PRN Reason Stop Dose Admin Sodium Chloride 1,000 mls @ 500 mls/hr 05/21/21 11:45 Normal Saline IV ASDIRECTED [facility] - Re-Assessments/Exams Free Text/Narrative Re-Assessment/Exam: 05/21/21 11:55 Patient will be given 500 cc of normal saline, CMP CBC and ammonia level obtained as well as UA. UA showed a few WBCs but no bacteria, nitrate negative. 05/21/21 12:57 Kidney function has decreased, GFR is now 19 and creatinine is 2.5. Very important that this patient stay hydrated, she was offered IV fluids but she is going to concentrate on oral hydration. Liver function studies are stable and ammonia is 15. I strongly encouraged her to get to her appointment at [place] in 3 days but she said her muscle cramps while riding are too intense so she was given a prescription for 5 doses of 0.5 mg Ativan to take as needed while traveling. Departure - Departure Time of Disposition: 13:37 Disposition: Home, Self-Care 01 Clinical Impression: Dehydration, mild, Confusion Renal failure Qualifiers: Renal failure chronicity: acute on chronic Acute renal failure type: unspecified Chronic kidney disease stage: stage 4 (severe) Qualified Code(s): N17.9 - Acute kidney failure, unspecified - Discharge Information Instructions: Confusion Referrals: Denise Moreland DO [Primary Care Provider] - Forms: ED Department Discharge Care Plan Goals: Concentrate on staying hydrated with consistent water intake over the next couple of days and try to get to your [facility] appointment if possible. Use Ativan while traveling to help with muscle cramps and relaxation. Take your laboratory values from today with you to your recheck if you go to [facility]. Return sooner if worsening such as fever, difficulty breathing, or nausea and vomiting and more concerns about your hydration status. Sepsis Event Note (ED) - Evaluation Sepsis Screening Result: No Definite Risk - Focused Exam Vital Signs: Vital Signs Temp Pulse Resp BP Pulse Ox 05/21/21 12:28 110 H 115/79 05/21/21 11:23 97.5 F 106 H 16 124/84 97 05/21/21 11:08 97.5 F 106 H 16 124/84 97
== END 2021-05-21 13:15 | disposition home or self-care (01) ==
LOC: JP.ED 10:52
DX: N17.9 Acute kidney failure, unspecified (principal); I11.9 Hypertensive heart disease without heart failure; I12.9 Hypertensive chronic kidney disease with stage 1 through stage 4 chronic kidney disease, or unspecified chronic kidney disease; N18.4 Chronic kidney disease, stage 4 (severe); E86.0 Dehydration; R41.0 Disorientation, unspecified; I48.91 Unspecified atrial fibrillation; Z86.73 Personal history of transient ischemic attack (TIA), and cerebral infarction without residual deficits; Z88.1 Allergy status to other antibiotic agents; Z79.899 Other long term (current) drug therapy
CPT/HCPCS: 36415; 80053; 81001; 82140; 85025; 99284

== ENCOUNTER 2021-05-25 19:00 | Emergency (ER) | payer MEDICARE, OTHER ==
--- NOTE | 2021-05-25 20:42 | EDM.PDOC ---
<Griselda Rosales - Last Filed: 05/26/21 00:50> ED HPI GENERAL MEDICAL PROBLEM - General Chief Complaint: Abdominal Pain Stated Complaint: SEVERE ABD PAIN Time Seen by Provider: 05/25/21 20:41 Source of Information: Reports: Patient, Family, RN Notes Reviewed History Limitations: Reports: No Limitations - History of Present Illness INITIAL COMMENTS - FREE TEXT/NARRATIVE: Toyin presents today for complaints of right lower abdominal pain. She reports abdominal pain to the right lower area for 4 days. She reports she has been feeling week, falling frequently and tired. She reports increased pain with sitting up, decreased pain with laying down. She reports use of tylenol for pain with no help. She states she has history of renal disease, may need a renal transplant, takes lactulose for BMs. She complains of nausea the past 4 days with one emesis. She denies coffee ground emesis, black, bloody or tar like stools. She denies fever, chills, change in bladder function. She reports pending appointments with [facility] for ongoing care. Significant medical history of GI bleeds upper and lower, esophageal varices and renal failure. Patient and her husbands home telephone land line [phone]. - Related Data Allergies Allergy/AdvReac Type Severity Reaction Status Date / Time erythromycin base Allergy Intermediate Hives Verified 05/21/21 11:13 [Erythromycin Base] Home Meds: Home Meds Furosemide [Lasix] 20 mg PO DAILY PRN 04/01/14 [History] Potassium Chloride 10 mg PO DAILY 04/01/14 [History] Propranolol [Inderal] 20 mg PO BID 04/01/14 [History] Sertraline HCl [Zoloft] 100 mg PO DAILY 04/01/14 [History] Pantoprazole [ProTONIX] 40 mg PO BID 12/17/18 [History] Acetaminophen 1,000 mg PO TID PRN 01/23/21 [History] Calcium Carbonate [Tums] 500 mg PO TID PRN 01/23/21 [History] Cyclobenzaprine [Flexeril] 5 mg PO TID PRN 01/23/21 [History] Fluticasone Propionate [Flonase Allergy Relief] 1 spray NASBOTH DAILY PRN 01/23/21 [History] Gabapentin [Neurontin] 100 mg PO BEDTIME 01/23/21 [History] Glimepiride [Amaryl] 2 mg PO DAILY 01/23/21 [History] Lactulose 1 dose PO BID 01/23/21 [History] Magnesium Oxide 400 mg PO DAILY 01/23/21 [History] Meclizine [Antivert] 12.5 mg PO ASDIRECTED PRN 01/23/21 [History] Spironolactone [Aldactone] 25 mg PO DAILY PRN 01/23/21 [History] hydrOXYzine HCL [hydrOXYzine] 25 mg PO Q6H PRN 01/23/21 [History] Past Medical History HEENT History: Reports: Impaired Vision Cardiovascular History: Reports: Afib, Arrhythmia, Cardiomyopathy, Hypertension Respiratory History: Reports: None Gastrointestinal History: Reports: Chronic Diarrhea, Cirrhosis, Gastritis, GI Bleed Other Gastrointestinal History: esophageal varices Genitourinary History: Reports: Chronic Renal Insuffiency, Renal Calculus, UTI, Recurrent Other Genitourinary History: "sponge"disease [employer] History: Reports: Musculoskeletal History: Reports: None Neurological History: Reports: CVA Psychiatric History: Reports: Depression Endocrine/Metabolic History: Reports: None Hematologic History: Reports: Anemia, Blood Transfusion(s) Oncologic (Cancer) History: Reports: None Dermatologic History: Reports: None - Infectious Disease History Infectious Disease History: Reports: Chicken Pox, Measles, Mumps - Past Surgical History GI Surgical History: Reports: Colonoscopy, EGD Other GI Surgeries/Procedures: genetic hepatic fibrosis Female Surgical History: Reports: None Musculoskeletal Surgical History: Reports: Knee Replacement Social & Family History - Family History Family Medical History: No Pertinent Family History - Tobacco Use Tobacco Use Status *Q: Never Tobacco User - Caffeine Use Caffeine Use: Reports: None - Recreational Drug Use Recreational Drug Use: No ED ROS GENERAL - Review of Systems Review Of Systems: See Below Constitutional: Reports: Malaise, Weakness. Denies: Fever, Chills, Night Sweats, Diaphoresis, Decreased Appetite, Weight Loss HEENT: Reports: No Symptoms Respiratory: Reports: No Symptoms Cardiovascular: Reports: No Symptoms Endocrine: Reports: No Symptoms GI/Abdominal: Reports: Abdominal Pain (pain to RLQ), Nausea, Vomiting (x 1 today). Denies: Anorexia, Black Stool, Bloody Stool, Constipation, Diarrhea, Distension, Hematemesis, Hematochezia, Melena : Reports: No Symptoms Musculoskeletal: Reports: No Symptoms Skin: Reports: No Symptoms Neurological: Reports: Confusion (at times, unsteady gait), Dizziness, Difficulty Walking, Weakness, Gait Disturbance. Denies: Headache, Numbness, Paresthesia, Seizure, Syncope, Tingling, Tremors, Trouble Speaking, Change in Speech Psychiatric: Reports: No Symptoms Hematologic/Lymphatic: Reports: Anemia Immunologic: Reports: No Symptoms ED EXAM, GI/ABD - Physical Exam Exam: See Below Exam Limited By: No Limitations General Appearance: Alert, WD/WN, No Apparent Distress (pale, weak, speech clear) Eyes: Bilateral: Normal Appearance Ears: Normal External Exam, Normal Canal, Hearing Grossly Normal, Normal TMs Throat/Mouth: Normal Inspection, Normal Teeth, Normal Gums, Normal Oropharynx, Normal Voice, No Airway Compromise. No: Normal Lips (pale) Head: Atraumatic, Normocephalic Neck: Normal Inspection, Supple, Non-Tender, Full Range of Motion. No: Lymphadenopathy (R), Lymphadenopathy (L) Respiratory/Chest: No Respiratory Distress, Lungs Clear, Normal Breath Sounds, No Accessory Muscle Use, Chest Non-Tender. No: Crackles, Rales, Rhonchi, Wheezing, Stridor, Accessory Muscle Use, Retractions, Splinting Cardiovascular: No Edema, No Gallop, No Murmur, No Rub, Tachycardia (rate of 100 to 115) GI/Abdominal Exam: Normal Bowel Sounds, Soft, No Organomegaly, No Distention, No Abnormal Bruit, No Mass, Tender (to RLQ with palpation). No: Guarding, Rigid, Rebound (Female) Exam: Deferred Back Exam: Normal Inspection, Full Range of Motion. No: CVA Tenderness (R), CVA Tenderness (L) Extremities: Normal Capillary Refill Neurological: Alert, Oriented, Normal Cognition. No: Normal Gait (weakness, u nsteady) Psychiatric: Normal Affect, Normal Mood Skin Exam: Warm, Dry, Intact, No Rash, Pallor Lymphatic: No Adenopathy Course - Orders/Labs/Meds Labs: Patient lab work reviewed, noted worsening anemia from 05/21/2021 when her Hgb was 9.6. Thrombocytopenia, renal failure, hyponatremia, hypokalemia with history of GI upper and lower bleeding, esophageal varices and protal hypertension. Discussed case with hospitalist, no beds available here in [place]. Discussed case with [facility], [facility] they have no beds available. Notified patient and her . Toyin has pending GI, nephrology appointments with [facility]. [facility] contacted. - Radiology Interpretation Free Text/Narrative:: CT abdomen and pelvis without contrast shows bilateral intrarenal calculi. Mild dilation of renal pelvices bilaterally. No ureteral calculus. Right 2 calculi within urinary bladder close to ureterovesical junction. Abnormal liver with compatible chronic liver disease and likely cirrhosis. There are collateral vessels which may relate to portal hypertension. Trace pelvic ascites. Distended gallbladder. No appendicitis. - Re-Assessments/Exams Free Text/Narrative Re-Assessment/Exam: 05/25/21 22:30 [facility] contacted for possible transfer, they are not able to accept patient and are on diversion. 05/26/21 00:51 Patient resting. Officer assumed care of patient. Departure - Departure Time of Disposition: 23:40 Disposition: DC/Tfer to [facility] 02 Condition: Fair Clinical Impression: Polycythemia, Hypokalemia, Hyponatremia, Portal hypertension, History of GI bleed Anemia Qualifiers: Anemia type: other cause Other causes of anemia: other cause, not classified Qualified Code(s): D64.89 - Other specified anemias Renal failure Qualifiers: Renal failure chronicity: acute on chronic Acute renal failure type: unspecified Chronic kidney disease stage: stage 4 (severe) Qualified Code(s): N17.9 - Acute kidney failure, unspecified; N18.4 - Chronic kidney disease, stage 4 (severe) Cirrhosis of liver Qualifiers: Hepatic cirrhosis type: unspecified hepatic cirrhosis Ascites presence: with ascites Qualified Code(s): K74.60 - Unspecified cirrhosis of liver; R18.8 - Other ascites Ascites Qualifiers: Ascites type: other type Qualified Code(s): R18.8 - Other ascites Esophageal varices Qualifiers: Esophageal varices type: unspecified type Esophageal varices bleeding: without bleeding Qualified Code(s): I85.00 - Esophageal varices without bleeding - Discharge Information *PRESCRIPTION DRUG MONITORING PROGRAM REVIEWED*: Not Applicable *COPY OF PRESCRIPTION DRUG MONITORING REPORT IN PATIENT BETZY: Not Applicable Referrals: Denise Moreland DO [Primary Care Provider] - Forms: ED Department Discharge Sepsis Event Note (ED) - Evaluation Sepsis Screening Result: No Definite Risk - Assessment/Plan Assessment:: Anemia, Polycythemia, Hypokalemia, Hyponatremia, Portal hypertension, Cirrhosis of liver, Ascites, History of GI bleed Acute on chronic Acute renal failure type: unspecified Chronic kidney disease stage: stage 4 (severe) Qualified Code(s): N17.9 - Acute kidney failure, unspecified, history of esophageal varices. Patient transfer to [facility], acceptance per Dr. Smith. Toyin will be transported via EMS. Patient and her in agreement. <[place] G - Last Filed: 05/26/21 10:26> Course - Vital Signs Last Recorded V/S: Last Vital Signs Temp 36.1 C 05/26/21 01:57 Pulse 103 H 05/26/21 01:57 Resp 12 05/26/21 01:57 BP 114/77 05/26/21 01:57 Pulse Ox 97 05/26/21 01:57 - Orders/Labs/Meds Orders: Active Orders 24 hr Category Date Time Status Sodium Chloride 0.9% [Normal Saline] 1,000 ml Med 05/26/21 04:45 Active IV ASDIRECTED Sodium Chloride 0.9% [Saline Flush] Med 05/26/21 00:11 Active 10 ml FLUSH ASDIRECTED PRN Sodium Chloride 0.9% [Saline Flush] Med 05/26/21 00:11 Active 10 ml FLUSH ASDIRECTED PRN Saline Lock Insert [OM.PC] Routine Oth 05/26/21 00:11 Ordered Saline Lock Insert [OM.PC] Routine Oth 05/26/21 00:11 Ordered Medication Orders Sodium Chloride (Normal Saline) 1,000 mls @ 999 mls/hr IV ASDIRECTED DAYRON Last Admin: 05/26/21 04:52 Dose: 999 mls/hr Documented by: RADHA Sodium Chloride (Sodium Chloride 0.9% 10 Ml Syringe) 10 ml FLUSH ASDIRECTED PRN PRN Reason: Keep Vein Open Last Admin: 05/26/21 01:20 Dose: 10 ml Documented by: IBISJEHien Sodium Chloride (Sodium Chloride 0.9% 10 Ml Syringe) 10 ml FLUSH ASDIRECTED PRN PRN Reason: Keep Vein Open Last Admin: 10/31/21 01:20 Dose: 10 ml Documented by: RADHA Labs: Laboratory Tests 05/25/21 05/25/21 05/25/21 Range/Units 21:01 21:01 21:01 WBC 7.0 (4.5-11.0) K/uL RBC 2.66 L (3.30-5.50) M/uL Hgb 7.8 L (12.0-15.0) g/dL Hct 23.8 L (36.0-48.0) % MCV 90 (80-98) fL MCH 29 (27-31) pg MCHC 33 (32-36) % Plt Count 103 L (150-400) K/uL Neut % (Auto) 62.0 (36-66) % Lymph % (Auto) 26.0 (24-44) % Scurry % (Auto) 10.0 H (2-6) % Eos % (Auto) 1.0 L (2-4) % Baso % (Auto) 1.0 (0-1) % PT (9.2-10.6) sec INR APTT (21.4-31.8) sec Sodium 137 L (140-148) mmol/L Potassium 3.2 L (3.6-5.2) mmol/L Chloride 103 (100-108) mmol/L Carbon Dioxide 21 (21-32) mmol/L Anion Gap 16.2 H (5.0-14.0) mmol/L BUN 32 H (7-18) mg/dL Creatinine 2.4 H (0.6-1.0) mg/dL Est Cr Clr Drug Dosing 16.22 mL/min Estimated GFR (MDRD) 20 L (>60) Glucose 333 H (74-106) mg/dL Calcium 7.8 L (8.5-10.1) mg/dL Total Bilirubin 1.0 (0.2-1.0) mg/dL AST 56 H (15-37) U/L ALT 39 (12-78) U/L Alkaline Phosphatase 232 H (46-116) U/L C-Reactive Protein 0.66 H (0.0-0.3) mg/dL Total Protein 4.9 L (6.4-8.2) g/dL Albumin 2.1 L (3.4-5.0) g/dL Globulin 2.8 (2.3-3.5) g/dL Albumin/Globulin Ratio 0.8 L (1.2-2.2) Urine Color Yellow (YELLOW) Urine Appearance Slightly cloudy A (CLEAR) Urine pH 5.5 (5.0-8.0) Ur Specific [place] 1.020 (1.008-1.030) Urine Protein Trace H (NEGATIVE) mg/dL Urine Glucose (UA) Negative (NEGATIVE) mg/dL Urine Ketones Negative (NEGATIVE) mg/dL Urine Occult Blood Trace-intact H (NEGATIVE) Urine Nitrite Negative (NEGATIVE) Urine Bilirubin Negative (NEGATIVE) Urine Urobilinogen 0.2 (0.2-1.0) EU/dL Ur Leukocyte Esterase Small H (NEGATIVE) Urine RBC 0-5 (0-5) Urine WBC >100 H (0-5) Ur Epithelial Cells Moderate Amorphous Sediment Not seen Urine Bacteria Moderate Urine Mucus Not seen Urine Other SARS CoV-2 RNA Rapid TOM Blood Type Gel Antibody Screen 05/25/21 05/26/21 05/26/21 Range/Units 22:30 00:11 01:20 WBC (4.5-11.0) K/uL RBC (3.30-5.50) M/uL Hgb (12.0-15.0) g/dL Hct (36.0-48.0) % MCV (80-98) fL MCH (27-31) pg MCHC (32-36) % Plt Count (150-400) K/uL Neut % (Auto) (36-66) % Lymph % (Auto) (24-44) % [place] % (Auto) (2-6) % Eos % (Auto) (2-4) % Baso % (Auto) (0-1) % PT 12.4 H (9.2-10.6) sec INR 1.2 APTT 32.1 H (21.4-31.8) sec Sodium (140-148) mmol/L Potassium (3.6-5.2) mmol/L Chloride (100-108) mmol/L Carbon Dioxide (21-32) mmol/L Anion Gap (5.0-14.0) mmol/L BUN (7-18) mg/dL Creatinine (0.6-1.0) mg/dL Est Cr Clr Drug Dosing mL/min Estimated GFR (MDRD) (>60) Glucose (74-106) mg/dL Calcium (8.5-10.1) mg/dL Total Bilirubin (0.2-1.0) mg/dL AST (15-37) U/L ALT (12-78) U/L Alkaline Phosphatase (46-116) U/L C-Reactive Protein (0.0-0.3) mg/dL Total Protein (6.4-8.2) g/dL Albumin (3.4-5.0) g/dL Globulin (2.3-3.5) g/dL Albumin/Globulin Ratio (1.2-2.2) Urine Color (YELLOW) Urine Appearance (CLEAR) Urine pH (5.0-8.0) Ur Specific [place] (1.008-1.030) Urine Protein (NEGATIVE) mg/dL Urine Glucose (UA) (NEGATIVE) mg/dL Urine Ketones (NEGATIVE) mg/dL Urine Occult Blood (NEGATIVE) Urine Nitrite (NEGATIVE) Urine Bilirubin (NEGATIVE) Urine Urobilinogen (0.2-1.0) EU/dL Ur Leukocyte Esterase (NEGATIVE) Urine RBC (0-5) Urine WBC (0-5) Ur Epithelial Cells Amorphous Sediment Urine Bacteria Urine Mucus Urine Other SARS CoV-2 RNA Rapid TOM Negative Blood Type O POSITIVE Gel Antibody Screen Negative Meds: Medications Generic Name Dose Route Start Last Admin Trade Name Freq PRN Reason Stop Dose Admin Sodium Chloride 1,000 mls @ 999 mls/hr 05/26/21 04:45 05/26/21 04:52 Normal Saline IV 999 mls/hr ASDIRECTED DAYRON Administration Sodium Chloride 10 ml 05/26/21 00:11 05/26/21 01:20 Sodium Chloride 0.9% 10 Ml Syringe FLUSH 10 ml ASDIRECTED PRN Administration Keep Vein Open Sodium Chloride 10 ml 05/26/21 00:11 05/26/21 01:20 Sodium Chloride 0.9% 10 Ml Syringe FLUSH 10 ml ASDIRECTED PRN Administration Keep Vein Open Discontinued Medications Generic Name Dose Route Start Last Admin Trade Name Freq PRN Reason Stop Dose Admin Acetaminophen 500 mg 05/26/21 01:26 05/26/21 01:30 Acetaminophen 500 Mg Tab PO 05/26/21 01:27 500 mg ONETIME ONE Administration Acetaminophen 500 mg 05/26/21 10:07 Acetaminophen 500 Mg Tab PO 05/26/21 10:08 ONETIME ONE - Re-Assessments/Exams Free Text/Narrative Re-Assessment/Exam: 05/26/21 10:08 No transport available to get this patient to [place]. I have her the option of staying here. She is going to travel via her 's car to [place]. Has only required acetaminophen for pain and her vitals have not changed over the several hrs she has been here. Likely safe to travel via auto. 05/26/21 10:24 Family is willing and able to transport. Departure - Discharge Information *PRESCRIPTION DRUG MONITORING PROGRAM REVIEWED*: Not Applicable *COPY OF PRESCRIPTION DRUG MONITORING REPORT IN PATIENT BETZY: Not Applicable Sepsis Event Note (ED) - Focused Exam Vital Signs: Vital Signs Temp Pulse Resp BP Pulse Ox 05/26/21 01:57 36.1 C 103 H 12 114/77 97 05/25/21 23:16 104 H 14 95/64 96 05/25/21 22:46 102 H 16 117/70 91 L
--- NOTE | 2021-05-25 22:40 | CRLCT ---
For Patients: As a result of the 21st Century Cures Act, medical imaging exams and procedure reports are released immediately into your electronic medical record. You may view this report before your referring provider. If you have questions, please contact your health care provider. HISTORY: Right lower quadrant abdominal pain. TECHNIQUE: Noncontrast CT of the abdomen and pelvis. COMPARISON: No prior. FINDINGS: Heterogeneous appearance of the liver compatible with diffuse liver disease. This may relate to cirrhosis. There are hepatic calcifications present. Assessment for mass limited without contrast. The gallbladder is distended. The spleen size is within normal limits. The right adrenal gland is unremarkable. The left adrenal gland is not well differentiated from collateral vessels. The pancreas is grossly unremarkable. - There are bilateral intrarenal calculi. Mild dilatation of right renal pelvis without caliceal dilatation. Mild dilatation of the left renal pelvis without caliceal dilatation. On the right, there are a few fluid density lesions which may reflect cysts. On the left, there are a few hyperdense renal lesions which could reflect hemorrhagic or proteinaceous cysts though are incompletely characterized. There are 2 calculi along the right aspect of the urinary bladder on image 175 loose to the ureterovesical junction. Urinary bladder does not appear excessively distended. Other pelvic calcifications most compatible with phleboliths. - No small bowel obstruction. No periappendiceal inflammatory changes to suggest acute appendicitis. No diverticulitis. - Trace amount of pelvic free fluid. No localized collection or free air. There are collateral vessels within the left upper quadrant abdomen which may relate to portal hypertension given the appearance of this patient`s liver. - Degenerative changes of the spine. No acute fractures. 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 - Mild reticulation within the lung bases suggesting mild fibrosis. IMPRESSION: 1. Bilateral intrarenal calculi. Mild dilatation of the renal pelvices bilaterally. No ureteral calculus. On the right, there are 2 calculi within the urinary bladder close to the ureterovesical junction. 2. Abnormal liver with compatible with chronic liver disease and likely cirrhosis. There are collateral vessels which may relate to portal hypertension. Trace pelvic ascites. 3. Distended gallbladder. 4. No appendicitis. Dictated by Keron Cortez MD @ 05/25/2021 10:37:56 PM Please note that all CT scans at this facility use dose modulation, iterative reconstruction, and/or weight-based dosing when appropriate to reduce radiation dose to as low as reasonably achievable. Dictated by: Keron Cortez MD @ 05/25/2021 22:38:01 (Electronically Signed)
[2021-05-26] MEDS: Sodium Chloride 0.9% 10 ML Syringe FLUSH PRN ×2 (01:20)
[2021-05-26] MEDS: Acetaminophen 500 MG Tab PO ONE ×2 (01:30→10:41)
[2021-05-26] MEDS: Sodium Chloride 0.9% 1,000 ML IV SCH (04:52)
== END 2021-05-26 11:28 ==
LOC: JP.ED 19:00
DX: K74.60 Unspecified cirrhosis of liver (principal); R18.8 Other ascites; I85.00 Esophageal varices without bleeding; N17.9 Acute kidney failure, unspecified; I11.9 Hypertensive heart disease without heart failure; I12.9 Hypertensive chronic kidney disease with stage 1 through stage 4 chronic kidney disease, or unspecified chronic kidney disease; N18.9 Chronic kidney disease, unspecified; D63.1 Anemia in chronic kidney disease; D75.1 Secondary polycythemia; E87.6 Hypokalemia; E87.1 Hypo-osmolality and hyponatremia; Z86.73 Personal history of transient ischemic attack (TIA), and cerebral infarction without residual deficits; Z88.1 Allergy status to other antibiotic agents; Z20.822 Contact with and (suspected) exposure to COVID-19
CPT/HCPCS: 36415; 74176; 80053; 81001; 85025; 85610; 85730; 86140; 86850; 86900; 86901; 99285; A9270; J7030; U0002